=== PATIENT | female | born 1960 | race African-American/Black ===

== ENCOUNTER 2022-09-25 17:56 | Emergency (ER) | payer MEDICARE, OTHER ==
[~2022-09-25] VITALS: Ht 170.2 cm; Wt 92.5 kg
[2022-09-25] MEDS ORDERED: ALLERGY RELIEF5 M1 PO (18:36)
[2022-09-25] MEDS ORDERED: VENTOLIN HFA18 GM INH (18:36)
[2022-09-25] MEDS ORDERED: DOXEPIN HCL25 MG PO (18:37)
[2022-09-25] MEDS ORDERED: CLOPIDOGREL75 MG PO (18:37)
[2022-09-25] MEDS ORDERED: FETZIMA80 MG PO (18:38)
[2022-09-25] MEDS ORDERED: FERROUS SULFAT324 MG PO (18:38)
[2022-09-25] MEDS ORDERED: TRESIBA100 UNIT/1 (18:39)
[2022-09-25] MEDS ORDERED: PANTOPRAZOLE SO40 MG PO (18:40)
[2022-09-25] MEDS ORDERED: MAGNESIUM250 MG PO (18:40)
[2022-09-25] MEDS ORDERED: ZESTRIL10 MG PO (18:40)
[2022-09-25] MEDS ORDERED: TIZANIDINE HCL4 MG PO (18:41)
[2022-09-25] MEDS ORDERED: INDERAL XL80 MG PO (18:41)
[2022-09-25] MEDS ORDERED: HYDROCHLOROTHIA25 MG PO (18:42)
[2022-09-25] MEDS ORDERED: DOXYCYCLINE HY100 MG PO (19:10)
[2022-09-25 19:45] VITALS: BP 132/97
== END 2022-09-25 19:35 | disposition home or self-care (01) ==
LOC: ED 17:56
DX: E11.621 Type 2 diabetes mellitus with foot ulcer (principal); L89.892 Pressure ulcer of other site, stage 2; I10 Essential (primary) hypertension; Z88.0 Allergy status to penicillin; Z79.4 Long term (current) use of insulin; Z79.899 Other long term (current) drug therapy